=== PATIENT | female | born 1975 | race African-American/Black ===

== ENCOUNTER → 2016-10-20 | Outpatient (CLI) | payer OTHER ==
--- NOTE | ~2016-10-20 | US200 ---
[facility] A Service of [facility] RADIOLOGY TEXT RESULTS PATIENT: RANDELL MCINTYRE LOCATION: [facility] : 75 UNIT #: [id number] AGE: [address]: ZARINA GONZALEZ MD SEX: F ORDER DR: [id number] [facility]. [place], [place] [address] [id number] O MR#: [id number] Acc #: [id number] NAME: RANDELL MCINTYRE : 1975 SEX: F STUDY DATE/TIME: 10/20/2016 9:57 UNIT: [facility] ROOM: STUDY DESCRIPTION: US Breast Guided Bx 1st Lesion Attending Physician: Zarina Gonzalez M.D. Ordering Physician: Zarina Gonzalez M.D. Primary Care Physician: Zarina Gonzalez M.D. MEDICAL IMAGING REPORT This report is preliminary unless electronic signature is present REVISED REPORT See addendum EXAM Ultrasound-guided core biopsy. INDICATION Indeterminate breast mass, 1 o'clock, 5 cm from the nipple. FINDINGS Informed consent was obtained. The patient's prior studies were reviewed. There is a 15 mm complex region which is well circumscribed at 1 o'clock, 5 cm from the nipple in the right breast. After informed consent, sterile preparation with local anesthesia obtained, three 14-gauge core samples from this region obtained under ultrasound guidance. A marker was placed at the biopsy site. Pathology report is pending. IMPRESSION Successful 14-gauge sampling of indeterminate right breast mass. Pathology report is pending. Dictated by... Brian Gamboa M.D. THIS IS AN ELECTRONICALLY VERIFIED REPORT Brian Gamboa M.D. at 10/24/2016 1:15 PM FEL/gz TD: 10/24/2016 12:07 JOB #: [id number] [facility] A Service of [facility] RADIOLOGY TEXT RESULTS PATIENT: RANDELL MCINTYRE LOCATION: [facility] : 75 UNIT #: [id number] AGE: [address]: ZARINA GONZALEZ MD SEX: F ORDER DR: Pathology report has been returned and shows fragments of fibroconnective tissue and fibroadipose tissue with foci of fat necrosis. There is no evidence of malignancy. The findings are concordant with the fatty lesion and no further followup is recommended. Annual screening mammography is recommended. Dictated by... Brian Gamboa M.D. THIS IS AN ELECTRONICALLY VERIFIED REPORT Brian Gamboa M.D. at 10/29/2016 9:03 AM SHANNAN/helio TD: 10/28/2016 17:30 JOB #: [id number] MEDICAL IMAGING REPORT COPY
== END | disposition home or self-care (01) ==
LOC: CWCC 09:15
DX: N63 Unspecified lump in breast (principal); N64.1 Fat necrosis of breast
CPT/HCPCS: 88305; G0204